=== PATIENT | male | born 1940 | race Two or more races ===

== ENCOUNTER 2020-02-26 10:10 | Outpatient (CLI) | payer MEDICARE, OTHER ==
[2020-02-26 12:27] LABS: BASOPHILS # (AUTO) 0.1 /CMM (0.0-0.2); BASOPHILS % (AUTO) 1.1 % (0.0-2.0); EOSINOPHILS % (AUTO) 2.3 % (0.0-6.0); HEMATOCRIT 40 % (39-51); HEMOGLOBIN 12.9 g/dL (13.5-17.5); LYMPHOCYTES % (AUTO) 15.9 % (20.0-44.0); MEAN CORPUSCULAR HGB CONC 33 g/dl (31.0-36.0); MEAN CORPUSCULAR VOLUME 97 fL (80-96); MONOCYTES # (AUTO) 0.8 /CMM (0.1-1.30); MONOCYTES % (AUTO) 11.9 % (2.0-12.0); NEUTROPHILS # (AUTO) 4.4 /CMM (1.8-8.9); NEUTROPHILS % (AUTO) 68.8 % (43.0-81.0); PLATELET COUNT (AUTO) 251 /CMM (150-450); WHITE BLOOD COUNT (AUTO) 6.5 K/uL (4.3-11.0)
[2020-02-26 12:33] LABS: APPEARANCE,URINE CLEAR (CLEAR); BILIRUBIN,URINE NEGATIVE (NEGATIVE); BLOOD, URINE NEGATIVE Ery/uL (NEGATIVE); COLOR,URINE YELLOW (YELLOW); KETONES,URINE NEGATIVE (NEGATIVE); LEUKOCYTE ESTERASE ,URINE NEGATIVE (NEGATIVE); NITRITE, URINE NEGATIVE (NEGATIVE); PH,URINE 7.5 (5.0-8.0); PROTEIN,URINE NEGATIVE (NEGATIVE); UGLUCOSE NEGATIVE (NEGATIVE); UROBILINOGEN,URINE 0.2 EU/dL (0.2)
[2020-02-26 13:12] LABS: ALANINE AMINOTRANSFERASE 18 U/L (12-78); ALBUMIN 3.5 g/dL (3.4-5.0); ALKALINE PHOSPHATASE 36 U/L (46-116); ASPARTATE AMINOTRANSFERASE 18 U/L (15-37); BILIRUBIN,TOTAL 0.4 mg/dL (0.2-1.0); CALCIUM, SERUM 9.4 mg/dL (8.5-10.1); CARBON DIOXIDE 27 mmol/L (21-32); CHLORIDE 103 mmol/L (98-107); CREATININE 1.2 mg/dL (0.6-1.3); GLUCOSE 93 mg/dL (74-106); MAGNESIUM 2.4 mg/dL (1.8-2.4); PHOSPHORUS 3.1 mg/dL (2.5-4.9); POTASSIUM 5.1 mmol/L (3.5-5.1); SODIUM SERUM 137 mmol/L (136-145); TOTAL PROTEIN, SERUM 6.5 g/dL (6.4-8.2); UREA NITROGEN, BLOOD 30 mg/dL (7-18)
[2020-02-26 13:13] LABS: CREATININE, URINE 115.3 MG/DL (30.0-125.0); URINE TOTAL PROTEIN 21.7 mg/dL (0-11.9)
[2020-02-26 14:08] LABS: CHOLESTEROL 158 mg/dL (<200); FREE T4 (FREE THYROXINE) 1.08 ng/dL (0.76-1.46); HDL CHOLESTEROL 49 mg/dL (40-60); LDL 94 mg/dL (0-99); THYROID STIMULATING HORMONE 1.099 uIU/mL (0.358-3.74); TRIGLYCERIDES 114 mg/dL (30-150)
[2020-02-26 14:09] LABS: C-REACTIVE PROTEIN < 0.2 mg/dL (0.0-0.9)
[2020-02-27 06:07] LABS: FOLIC ACID > 20.0 ng/mL (>3.0)
== END 2020-02-26 23:59 | disposition home or self-care (01) ==
LOC: MSC 10:10
PROVIDERS: ATTEND Internal Medicine
DX: K59.00 Constipation, unspecified (principal); I10 Essential (primary) hypertension
CPT/HCPCS: 36415; 80053; 80061; 81001; 82306; 82570; 82607; 82746; 83036; 83735; 84100; 84155; 84439; 84443; 85025; 85652; 86140; G0463; 81000-TC

== ENCOUNTER 2020-03-26 10:56 | Outpatient (CLI) | payer MEDICARE ==
[2020-03-26 13:40] LABS: BASOPHILS # (AUTO) 0.1 /CMM (0.0-0.2); BASOPHILS % (AUTO) 1.3 % (0.0-2.0); EOSINOPHILS % (AUTO) 1.3 % (0.0-6.0); HEMATOCRIT 39 % (39-51); HEMOGLOBIN 12.9 g/dL (13.5-17.5); LYMPHOCYTES # (AUTO) 1.1 /CMM (0.8-4.8); LYMPHOCYTES % (AUTO) 17.6 % (20.0-44.0); MEAN CORPUSCULAR HGB CONC 33 g/dl (31.0-36.0); MEAN CORPUSCULAR VOLUME 96 fL (80-96); MONOCYTES # (AUTO) 0.7 /CMM (0.1-1.30); MONOCYTES % (AUTO) 11.7 % (2.0-12.0); NEUTROPHILS # (AUTO) 4.2 /CMM (1.8-8.9); NEUTROPHILS % (AUTO) 68.1 % (43.0-81.0); PLATELET COUNT (AUTO) 256 /CMM (150-450); WHITE BLOOD COUNT (AUTO) 6.1 K/uL (4.3-11.0)
[2020-03-26 13:50] LABS: ALANINE AMINOTRANSFERASE 21 U/L (12-78); ALBUMIN 3.7 g/dL (3.4-5.0); ALKALINE PHOSPHATASE 34 U/L (46-116); ASPARTATE AMINOTRANSFERASE 13 U/L (15-37); BILIRUBIN,TOTAL 0.5 mg/dL (0.2-1.0); CARBON DIOXIDE 27 mmol/L (21-32); CHLORIDE 104 mmol/L (98-107); CREATININE 1.6 mg/dL (0.6-1.3); GLUCOSE 100 mg/dL (74-106); POTASSIUM 4.9 mmol/L (3.5-5.1); SODIUM SERUM 138 mmol/L (136-145); TOTAL PROTEIN, SERUM 6.7 g/dL (6.4-8.2); UREA NITROGEN, BLOOD 36 mg/dL (7-18)
[2020-03-26 13:57] LABS: FERRITIN 161 ng/mL (8-388); IRON, SERUM 101 ug/dl (50-175); PREALBUMIN 35.2 MG/DL (18.0-35.7); PROSTATE SPECIFIC ANTIGEN SCR 5.64 ng/mL (0.00-4.00)
[2020-03-26 14:55] LABS: TOTAL IRON BINDING CAPACITY 264 ug/dl (250-450)
== END 2020-03-26 23:59 | disposition home or self-care (01) ==
LOC: MSC 10:56
PROVIDERS: ATTEND Internal Medicine
DX: R63.4 Abnormal weight loss (principal); Z68.1 Body mass index [BMI] 19.9 or less, adult; K59.00 Constipation, unspecified; I10 Essential (primary) hypertension
CPT/HCPCS: 36415; 80053; 82607; 82728; 82746; 83036; 83540; 83550; 84134; 84153; 85025; G0463

== ENCOUNTER 2020-04-16 09:55 | Outpatient (CLI) | payer MEDICARE | END 2020-04-16 23:59 | disposition home or self-care (01) | LOC: MSC 09:55 | PROVIDERS: ATTEND Internal Medicine | DX: N40.0 Benign prostatic hyperplasia without lower urinary tract symptoms (principal); R63.5 Abnormal weight gain; Z68.1 Body mass index [BMI] 19.9 or less, adult; I10 Essential (primary) hypertension; K59.00 Constipation, unspecified ==

== ENCOUNTER 2020-05-07 11:40 | Outpatient (CLI) | payer MEDICARE ==
[2020-05-07 12:55] LABS: ALANINE AMINOTRANSFERASE 27 U/L (12-78); ALBUMIN 3.5 g/dL (3.4-5.0); ALKALINE PHOSPHATASE 40 U/L (46-116); ASPARTATE AMINOTRANSFERASE 17 U/L (15-37); BILIRUBIN,TOTAL 0.3 mg/dL (0.2-1.0); CARBON DIOXIDE 30 mmol/L (21-32); CHLORIDE 103 mmol/L (98-107); CREATININE 1.2 mg/dL (0.6-1.3); GLUCOSE 129 mg/dL (74-106); MAGNESIUM 2.5 mg/dL (1.8-2.4); PHOSPHORUS 3.5 mg/dL (2.5-4.9); POTASSIUM 4.7 mmol/L (3.5-5.1); SODIUM SERUM 139 mmol/L (136-145); TOTAL PROTEIN, SERUM 6.4 g/dL (6.4-8.2); UREA NITROGEN, BLOOD 29 mg/dL (7-18)
== END 2020-05-07 23:59 | disposition home or self-care (01) ==
LOC: MSC 11:40
PROVIDERS: ATTEND Internal Medicine
DX: I95.9 Hypotension, unspecified (principal); I10 Essential (primary) hypertension; N40.0 Benign prostatic hyperplasia without lower urinary tract symptoms; K59.00 Constipation, unspecified; R63.4 Abnormal weight loss
CPT/HCPCS: 36415; 80053; 83735; 84100; G0463

== ENCOUNTER 2020-07-02 11:31 | Outpatient (CLI) | payer MEDICARE | END 2020-07-02 23:59 | disposition home or self-care (01) | LOC: MSC 11:31 | PROVIDERS: ATTEND Internal Medicine | DX: R41.81 Age-related cognitive decline (principal); I10 Essential (primary) hypertension; N40.0 Benign prostatic hyperplasia without lower urinary tract symptoms; R63.4 Abnormal weight loss; Z68.1 Body mass index [BMI] 19.9 or less, adult; K59.00 Constipation, unspecified; Z79.899 Other long term (current) drug therapy ==

== ENCOUNTER 2020-07-16 10:24 | Outpatient (CLI) | payer MEDICARE ==
[2020-07-16 12:42] LABS: BILIRUBIN,URINE NEGATIVE (NEGATIVE); COLOR,URINE YELLOW (YELLOW); LEUKOCYTE ESTERASE ,URINE MODERATE (NEGATIVE); NITRITE, URINE NEGATIVE (NEGATIVE); PROTEIN,URINE NEGATIVE (NEGATIVE); UGLUCOSE NEGATIVE (NEGATIVE); UROBILINOGEN,URINE 0.2 EU/dL (0.2)
[2020-07-16 13:07] LABS: BACTERIA,URINE Few /HPF (None Seen); RBC,URINE 0-2 /HPF (0-2); SQUAMOUS EPITHELIAL CELL,UR Rare /HPF (None Seen)
== END 2020-07-16 23:59 | disposition home or self-care (01) ==
LOC: MSC 10:24
PROVIDERS: ATTEND Internal Medicine
DX: R41.81 Age-related cognitive decline (principal); R41.3 Other amnesia; I10 Essential (primary) hypertension; K59.00 Constipation, unspecified; R63.4 Abnormal weight loss; Z68.20 Body mass index [BMI] 20.0-20.9, adult; Z87.440 Personal history of urinary (tract) infections; N40.0 Benign prostatic hyperplasia without lower urinary tract symptoms
CPT/HCPCS: 81001; 87086; G0463

== ENCOUNTER 2020-09-03 10:30 | Outpatient (CLI) | payer MEDICARE | END 2020-09-03 23:59 | disposition home or self-care (01) | LOC: MSC 10:30 | PROVIDERS: ATTEND Internal Medicine | DX: R41.81 Age-related cognitive decline (principal); N39.0 Urinary tract infection, site not specified; I10 Essential (primary) hypertension; N40.0 Benign prostatic hyperplasia without lower urinary tract symptoms; R63.4 Abnormal weight loss; K59.00 Constipation, unspecified; Z79.899 Other long term (current) drug therapy ==

== ENCOUNTER 2020-09-15 11:00 | Outpatient (CLI) | payer MEDICARE | END 2020-09-15 23:59 | disposition home or self-care (01) | LOC: MSC 11:00 | PROVIDERS: ATTEND Internal Medicine | DX: R41.81 Age-related cognitive decline (principal); Z87.440 Personal history of urinary (tract) infections; N40.0 Benign prostatic hyperplasia without lower urinary tract symptoms; Z79.899 Other long term (current) drug therapy; I10 Essential (primary) hypertension; K59.00 Constipation, unspecified; R63.4 Abnormal weight loss ==